=== PATIENT | male | born 1940 | race Caucasian/White ===

== ENCOUNTER 2020-12-13 09:00 | Emergency (ER) | payer MEDICARE, OTHER ==
[~2020-12-13] VITALS: Ht 188 cm; Wt 99.8 kg
[~2020-12-13 09:00] MED LIST: ACET325 PO; ACET500 PO; ASPI325EC PO; ASPI81EC; Antivert25 MG PO; BISA5EC PO; CELE200; CLOP75; CLOP75 PO; CYAN500; DOCU100 PO; FINA5 PO; Fenofibrate134 MG PO; HYDACE10B PO; IRON PO; LEVO750 PO; LISI5 PO; TAMS.4ER PO; TRAM50; VITAMIN B12; WARF4 PO; Zofran Odt4 MG SL; [UNRECOGNIZED DRUG - OTHER] PO; [UNRECOGNIZED DRUG - OTHER] PO
[2020-12-13] MEDS ORDERED: ATOR20 PO (09:31)
[2020-12-13] MEDS ORDERED: METF500 PO (09:31)
[2020-12-13] MEDS ORDERED: CLOP75 PO (09:32)
[2020-12-13 09:52] LABS: Source, Urine Catheter
[2020-12-13 09:57] LABS: BASOPHILS ABSOLUTE AUTO 0.05 K/mm3 (0.00-0.23); BASOPHILS PERCENT AUTO 0 % (0-2); EOSINOPHILS ABSOLUTE AUTO 0.04 K/mm3 (0.00-0.68); EOSINOPHILS PERCENT AUTO 0 % (0-6); Hematocrit 40.5 % (37.0-53.0); Hemoglobin 13.3 g/dL (13.5-17.5); IMMATURE GRAN ABSOLUTE AUTO 0.07 K/mm3 (0.00-0.10); IMMATURE GRAN PERCENT AUTO 1 % (0-1); LYMPHOCYTES ABSOLUTE AUTO 1.14 K/mm3 (0.84-5.20); LYMPHOCYTES PERCENT AUTO 10 % (21-46); MONOCYTES ABSOLUTE AUTO 1.13 K/mm3 (0.16-1.47); MONOCYTES PERCENT AUTO 10 % (4-13); Mean Corpuscular HGB 31.1 pg (26.0-34.0); Mean Corpuscular HGB Conc 32.8 g/dL (31.5-36.5); Mean Corpuscular Volume 95 fL (80-100); Mean Platelet Volume 10.5 fL (9.1-12.4); NEUTROPHILS ABSOLUTE AUTO 8.69 K/mm3 (1.96-9.15); NEUTROPHILS PERCENT AUTO 78 % (41-73); Platelet Count 265 K/mm3 (150-400); RDW Coefficient Variation 13.1 % (11.7-14.2); RDW Standard Deviation 45.2 fL (35.1-46.3); Red Blood Cell Count 4.27 M/mm3 (4.30-5.90); White Blood Cell Count 11.12 K/mm3 (4.00-11.30)
[2020-12-13 10:10] LABS: Bilirubin, Urine Neg (Neg); Blood, Urine 5+ (Neg); Glucose Qualitative, Urine Neg (Neg); Ketones, Urine 1+ (Neg); Leukocyte Esterase, Urine 2+ (Neg); Nitrite, Urine Pos (Neg); Protein, Urine 4+ (Neg); Specific Gravity, Urine 1.015 (1.003-1.022); Urobilinogen, Urine NORM (Normal); pH, Urine 6.5 (5.0-8.0)
[2020-12-13 10:12] LABS: International Normalized Ratio 1.02; Prothrombin Time Results 10.9 Sec (9.7-11.5)
[2020-12-13 10:12] LABS: Appearance, Urine Bloody (Clear); Color, Urine Red (P-Yellow)
[2020-12-13 10:19] LABS: Red Blood Cells, Urine TNTC /hpf (0-2); White Blood Cells, Urine 50-100 /hpf (0-5)
[2020-12-13 10:20] LABS: Alanine Aminotransfer (ALT/SGP 24 U/L (12-78); Albumin, Blood 3.5 g/dL (3.4-5.0); Alk Phos 67 U/L (50-136); Anion Gap 8 mmol/L (6-16); Aspartate Aminotrans (AST/SGOT 12 U/L (12-37); Bilirubin, Total 1.8 mg/dL (0.1-1.0); Blood Urea Nitrogen 21 mg/dL (8-24); Bun/Creatinine Ratio 17.9 (12.0-20.0); CO2, Blood 23 mmol/L (21-32); Calcium, Blood 9.1 mg/dL (8.5-10.1); Chloride, Blood 107 mmol/L (98-108); Creatinine, Blood 1.17 mg/dL (0.60-1.20); Globulin, Blood 3.6 g/dL (2.2-4.0); Glomerular Filtration Rate >60 (60-); Glucose, Blood 185 mg/dL (70-99); Potassium, Blood 4.6 mmol/L (3.5-5.5); Sodium, Blood 138 mmol/L (136-145); Total Protein, Blood 7.1 g/dL (6.4-8.2)
[2020-12-13 10:20] LABS: Bacteria Many /hpf; Squamous Epithelial Cells Rare /hpf (Few)
[2020-12-13] MEDS ORDERED: CEFP200 PO (11:29)
== END 2020-12-13 12:32 | disposition home or self-care (01) ==
LOC: ER 09:00
PROVIDERS: Emergency Medicine
DX: N39.0 Urinary tract infection, site not specified (principal); R31.9 Hematuria, unspecified; E11.9 Type 2 diabetes mellitus without complications; I10 Essential (primary) hypertension; Z79.84 Long term (current) use of oral hypoglycemic drugs; Z79.899 Other long term (current) drug therapy; Z79.01 Long term (current) use of anticoagulants
CPT/HCPCS: 51702; 76857; 80053; 81001; 85025; 85610; 85730; 87077; 87086; 87186; 96365-59; 99284-25; J0696

== ENCOUNTER 2020-12-16 22:59 | Emergency (ER) | payer MEDICARE, OTHER ==
[~2020-12-16] VITALS: Ht 193 cm; Wt 117.9 kg
[~2020-12-16 22:59] MED LIST changes: +ATOR20 PO; +CEFP200 PO; +METF500 PO
== END 2020-12-17 00:37 | disposition home or self-care (01) ==
LOC: ER 22:59
DX: T83.091A Other mechanical complication of indwelling urethral catheter, initial encounter (principal); R33.9 Retention of urine, unspecified; Z79.84 Long term (current) use of oral hypoglycemic drugs; Z79.02 Long term (current) use of antithrombotics/antiplatelets; Z79.899 Other long term (current) drug therapy
CPT/HCPCS: 51702; 51798; 81001; 87086; 99283; 99284-25

== ENCOUNTER 2023-04-23 12:07 | Inpatient (IN) | payer MEDICARE, BC ==
[~2023-04-23] VITALS: Ht 193 cm; Wt 127.1 kg
[2023-04-23 12:50] LABS: BASOPHILS ABSOLUTE AUTO 0.05 K/mm3 (0.00-0.23); BASOPHILS PERCENT AUTO 1 % (0-2); EOSINOPHILS ABSOLUTE AUTO 0.13 K/mm3 (0.00-0.68); EOSINOPHILS PERCENT AUTO 2 % (0-6); Hematocrit 41.9 % (37.0-53.0); Hemoglobin 14.1 g/dL (13.5-17.5); IMMATURE GRAN ABSOLUTE AUTO 0.04 K/mm3 (0.00-0.10); IMMATURE GRAN PERCENT AUTO 1 % (0-1); LYMPHOCYTES ABSOLUTE AUTO 1.32 K/mm3 (0.84-5.20); LYMPHOCYTES PERCENT AUTO 16 % (21-46); MONOCYTES ABSOLUTE AUTO 0.66 K/mm3 (0.16-1.47); MONOCYTES PERCENT AUTO 8 % (4-13); Mean Corpuscular HGB 33.1 pg (26.0-34.0); Mean Corpuscular HGB Conc 33.7 g/dL (31.5-36.5); Mean Corpuscular Volume 98 fL (80-100); Mean Platelet Volume 10.8 fL (9.1-12.4); NEUTROPHILS PERCENT AUTO 74 % (41-73); Platelet Count 221 K/mm3 (150-400); RDW Coefficient Variation 13.2 % (11.7-14.2); RDW Standard Deviation 47.5 fL (35.1-46.3); Red Blood Cell Count 4.26 M/mm3 (4.30-5.90)
[2023-04-23 13:03] LABS: Albumin, Blood 3.9 g/dL (3.4-5.0); Albumin/Globulin Ratio 1.3 (0.8-1.8); Bilirubin, Total 1.7 mg/dL (0.1-1.0); Bun/Creatinine Ratio 20.8 (12.0-20.0); Calcium, Blood 9.2 mg/dL (8.5-10.1); Creatinine, Blood 1.06 mg/dL (0.60-1.20); Potassium, Blood 4.6 mmol/L (3.5-5.5); Total Protein, Blood 6.9 g/dL (6.4-8.2)
[2023-04-23] MEDS ORDERED: PLAVIX75 MG PO (14:31)
[2023-04-23] MEDS ORDERED: LISINOPRIL2.5 MG PO (14:31)
[2023-04-23] MEDS ORDERED: FENO160 PO (14:33)
[2023-04-23 16:58] LABS: Anti-Xa UFH, PHA Monitoring <0.10 IU/mL; International Normalized Ratio 1.06; Prothrombin Time Results 11.1 Sec (9.7-11.5)
[2023-04-23 17:24] VITALS: BP 136/91
--- NOTE | 2023-04-23 19:14 | NUR ---
PT ARRIVED IN THE ROOM VIA GURNEY FROM ER TRANSFERRED TO PCU BED VIA SLIDER SHEET. PT IS HERE FOR NEW ONSENT OF AFIB RVR, PT GETS SOB WITH MINIMAL EXERTION, VITALS HRR AFIB 90'S TACHS UP TO 120'S WITH EXERTION, SATS ABOVE 95% ON RA, ABP 130'S, AFEBRILE. PT IS VERY LOWER [place] BUT IS ABLE TO ANSWER QUESTIONS APPROPRIATELY, HAS STACK IN PLACE DRAINING VIA GRAVITY, PT SELF STRAIGHT CATH AT HOME DUE TO RETENTION. HEPARIN GTT STARTED AT 15U/KG/HR. PT NOW RESTING IN BED CAN REPOSITION SELF INDEPENDENTLY IN BED. CALL LIGHTS IN REACH WILL REPORT TO ONCOMING SHIFT
[2023-04-23 20:21] VITALS: BP 97/77
[2023-04-23 23:28] VITALS: BP 106/77
[2023-04-24 04:15] VITALS: BP 105/83
[2023-04-24 04:22] LABS: BASOPHILS ABSOLUTE AUTO 0.04 K/mm3 (0.00-0.23); BASOPHILS PERCENT AUTO 0 % (0-2); EOSINOPHILS ABSOLUTE AUTO 0.18 K/mm3 (0.00-0.68); EOSINOPHILS PERCENT AUTO 2 % (0-6); Hematocrit 41.1 % (37.0-53.0); Hemoglobin 13.8 g/dL (13.5-17.5); IMMATURE GRAN ABSOLUTE AUTO 0.04 K/mm3 (0.00-0.10); IMMATURE GRAN PERCENT AUTO 0 % (0-1); LYMPHOCYTES ABSOLUTE AUTO 1.58 K/mm3 (0.84-5.20); LYMPHOCYTES PERCENT AUTO 17 % (21-46); MONOCYTES ABSOLUTE AUTO 0.73 K/mm3 (0.16-1.47); MONOCYTES PERCENT AUTO 8 % (4-13); Mean Corpuscular HGB 32.9 pg (26.0-34.0); Mean Corpuscular HGB Conc 33.6 g/dL (31.5-36.5); Mean Corpuscular Volume 98 fL (80-100); Mean Platelet Volume 10.6 fL (9.1-12.4); NEUTROPHILS ABSOLUTE AUTO 6.55 K/mm3 (1.96-9.15); NEUTROPHILS PERCENT AUTO 72 % (41-73); Platelet Count 196 K/mm3 (150-400); Red Blood Cell Count 4.19 M/mm3 (4.30-5.90); White Blood Cell Count 9.12 K/mm3 (4.00-11.30)
[2023-04-24 04:59] LABS: Albumin, Blood 3.5 g/dL (3.4-5.0); Albumin/Globulin Ratio 1.3 (0.8-1.8); Bilirubin, Total 1.8 mg/dL (0.1-1.0); Bun/Creatinine Ratio 22.5 (12.0-20.0); Calcium, Blood 8.9 mg/dL (8.5-10.1); Creatinine, Blood 0.8 mg/dL (0.60-1.20); Globulin, Blood 2.6 g/dL (2.2-4.0); Potassium, Blood 4.1 mmol/L (3.5-5.5); Total Protein, Blood 6.1 g/dL (6.4-8.2)
--- NOTE | 2023-04-24 06:27 | NUR ---
SHIFT SUMMARY PATIENT ALERT AND ORIENTED X3, VERY HARD OF HEARING, REQUIRES VERBAL CUES TO REMIND HIM HOW TO USE A WALKER WHEN GOING TO THE RESTROOM. PATIENT IS DYSPNIC UPON EXERTION, SPO2 >90% ON ROOM AIR. PATIENT HAD A 6 BEAT RUN OF VTACH, HEART RATE OTHERWISE AFIB IN THE 90'S WITH STABLE BLOOD PRESSURE. NO ACUTE ISSUES NOTED OVERNIGHT. WILL CONTINUE TO MONITOR. CALL LIGHT WITHIN REACH.
[2023-04-24 07:23] VITALS: BP 126/79
[2023-04-24 10:42] LABS: Source, Urine Foley catheter
[2023-04-24 11:13] VITALS: BP 105/75
[2023-04-24 11:39] LABS: Appearance, Urine Hazy (Clear); Bilirubin, Urine Neg (Neg); Blood, Urine 5+ (Neg); Color, Urine Yellow (P-Yellow); Glucose Qualitative, Urine Neg (Neg); Ketones, Urine Neg (Neg); Leukocyte Esterase, Urine Neg (Neg); Nitrite, Urine Neg (Neg); Protein, Urine 2+ (Neg); Specific Gravity, Urine 1.015 (1.003-1.022); Urobilinogen, Urine NORM (Normal)
[2023-04-24 12:42] LABS: Red Blood Cells, Urine 50-100 /hpf (0-2); White Blood Cells, Urine 0-2 /hpf (0-5)
[2023-04-24 12:43] LABS: Bacteria Mod /hpf; Squamous Epithelial Cells Not Seen /hpf (Few)
[2023-04-24 12:44] LABS: Mucus Light (0-Heavy)
[2023-04-24 16:06] VITALS: BP 142/74
--- NOTE | 2023-04-24 16:17 | NUR ---
pt update color of output in kerns catheter noted to have changed from hazey yellow this afternoon to red/maroon. Call placed to MD Eddy. MD Eddy w/ orders to place hep gtt on standby until AM. Call placed to pharmacy to notify. Hep gtt disconnected from pt and on standby at this time.
[2023-04-24 21:20] VITALS: BP 97/81
[2023-04-25] VITALS (7 sets, daily range): BP systolic 120–152; BP diastolic 71–99
[2023-04-25 03:49] LABS: BASOPHILS ABSOLUTE AUTO 0.05 K/mm3 (0.00-0.23); BASOPHILS PERCENT AUTO 1 % (0-2); EOSINOPHILS ABSOLUTE AUTO 0.14 K/mm3 (0.00-0.68); EOSINOPHILS PERCENT AUTO 1 % (0-6); Hematocrit 42.1 % (37.0-53.0); Hemoglobin 14.3 g/dL (13.5-17.5); IMMATURE GRAN ABSOLUTE AUTO 0.04 K/mm3 (0.00-0.10); IMMATURE GRAN PERCENT AUTO 0 % (0-1); LYMPHOCYTES ABSOLUTE AUTO 1.92 K/mm3 (0.84-5.20); LYMPHOCYTES PERCENT AUTO 17 % (21-46); MONOCYTES ABSOLUTE AUTO 1.14 K/mm3 (0.16-1.47); MONOCYTES PERCENT AUTO 10 % (4-13); Mean Corpuscular HGB 32.9 pg (26.0-34.0); Mean Corpuscular Volume 97 fL (80-100); Mean Platelet Volume 10.9 fL (9.1-12.4); NEUTROPHILS PERCENT AUTO 70 % (41-73); Platelet Count 207 K/mm3 (150-400); RDW Coefficient Variation 12.9 % (11.7-14.2); RDW Standard Deviation 46.1 fL (35.1-46.3); Red Blood Cell Count 4.34 M/mm3 (4.30-5.90); White Blood Cell Count 11.09 K/mm3 (4.00-11.30)
[2023-04-25 04:14] LABS: Bun/Creatinine Ratio 21.2 (12.0-20.0); Calcium, Blood 8.9 mg/dL (8.5-10.1); Creatinine, Blood 0.94 mg/dL (0.60-1.20); Potassium, Blood 4.2 mmol/L (3.5-5.5)
--- NOTE | 2023-04-25 07:56 | NUR ---
SHIFT SUMMARY PATIENT ALERT AND ORIENTED X3. PATIENT HAD NO COMPLAINTS OF CHEST PAIN. REPORTS SHORTNESS OF BREATH EVERY TIME HE SPEAKS. PATIENT'S HEART RATE STARTED SUSTAINING IN THE 120'S TO 130'S, MEDICATED EARLY FOR HIS MIDNIGHT DOSE OF METOPROLOL PER MANAGER OF FINANCIAL REPORTING RESIDENT. ASSESSED PATIENT'S STACK CATHETER AND IT DID NOT APPEAR TO BE DRAINING. THE CATHETER WAS ADVANCED SOME MORE AND FLUSHED AND HAD NO ADDITIONAL ISSUES NOTED. WILL CONTINUE TO MONITOR. CALL LIGHT WITHIN REACH.
--- NOTE | 2023-04-25 18:40 | NUR ---
SHIFT SUMMARY NO ACUTE CHANGES THIS SHIFT. PT A&O, CURY[place]G. SP02>90% ON RA. DENIES SOB. TELEMETRY SHOWS AFIB, HR 90'S-140'S. SUSTAINED MOSTLY 110'S T/O SHIFT. DID SUSTAIN >120 WHILE UP IN CHAIR. CALL PLACED TO MD LIRIANO. MD LIRIANO W/ ORDERS FOR PRN METOPROLOL PUSH. PT HR DECREASED TO 110'S BEFORE GIVING PRN MEDICATION. DENIES PAIN. STACK CATHETER DRAINING YELLOW/MARCELLA TINGED URINE TO GRAVITY. HEP GTT RESTARTED THIS AM PER MD LIRIANO. PT REFUSED REPOSITIONING Q2H. UP IN CHAIR DURING MORNING. SON VISITED IN AFTERNOON. CALL LIGHT IN REACH.
--- NOTE | 2023-04-25 23:51 | NUR ---
PROVIDER CALLED RESIDENT SOLIS REGARDING BLOOD/CLOTS IN CATHETER AND PT STILL BEING ON HEPARIN GTT. PROVIDER STATES TO STOP HEPARIN GTT AT THIS TIME AND CONINUE TO MONITOR FOR BLEEDING. HEPARIN STOPPED @ 6422
[2023-04-26] VITALS (7 sets, daily range): BP systolic 107–153; BP diastolic 66–115
[2023-04-26 02:37] LABS: Hematocrit 40.4 % (37.0-53.0); Hemoglobin 13.8 g/dL (13.5-17.5); Mean Platelet Volume 10.7 fL (9.1-12.4); Platelet Count 186 K/mm3 (150-400)
--- NOTE | 2023-04-26 04:49 | NUR ---
SHIFT SUMMARY PT REMAINS AXO. IN AFIB, HAS REQUIRED PRN LOPRESSOR TO MANAGE HR IT HAS MAINTAINED >120BPM AT DIFFERENT TIMES T/O THIS SHIFT, EVEN AT REST. HTN BUT STABLE. ON RA. POST CALLING PROVIDER REGARDING HEPARIN GTT AND BLOODY URINE IN CATHETER WITH CLOTS, HEPARIN ON HOLD. URINE IS BEGINNING TO LESSEN FROM MAROON TO RECREATION DIRECTOR RED COLORING. MODERATE URINE OUPUT NOTED WITHOUT SIGNS OF NEEDING IRRIGATION. OTHERWISE PT HAS BEEN REPOSITIONED ALLOWED AND HAS BEEN UP TO BSC THIS SHIFT. RESTING FOR THE REST OF THE SHIFT. BED ALARM ON.
[2023-04-26 15:34] LABS: Source, Urine Foley catheter
[2023-04-26 15:39] LABS: Appearance, Urine Cloudy (Clear); Bilirubin, Urine Neg (Neg); Blood, Urine 5+ (Neg); Color, Urine Red (P-Yellow); Glucose Qualitative, Urine Neg (Neg); Ketones, Urine 1+ (Neg); Leukocyte Esterase, Urine 3+ (Neg); Nitrite, Urine Pos (Neg); Protein, Urine 3+ (Neg); Specific Gravity, Urine 1.015 (1.003-1.022); Urobilinogen, Urine NORM (Normal)
[2023-04-26 15:44] LABS: Red Blood Cells, Urine TNTC /hpf (0-2); White Blood Cells, Urine TNTC /hpf (0-5)
[2023-04-26 15:47] LABS: Bacteria Many /hpf; Hyaline Casts 0-2 /lpf (0-2); Squamous Epithelial Cells Rare /hpf (Few); WBC Cast 0-2 /lpf (0)
--- NOTE | 2023-04-26 18:44 | NUR ---
PCU 12 End of shift note. Pt started the day with some slight baseline confusion but it has seemed to increase as the day went on. MD was notified of episodes and nursing concerns. Head CT was ordered and completed, ABX started for possible UTI. RN updated son Bk about concerns. Son stated that he also thought that Pt was more confused when he visited him this afternoon. Pt has been awake much of the day. This morning he was OOB to the chair and commode multiple times with SBA of staff. Kerns was changed out due to clots this morning. Continues to drain pink tinged urine. Pt remains Afib, rate 110-140s. Rate significantly improved after urine retention was resolved with kerns replacement. Bed alarm is currently active.
[2023-04-27] VITALS (8 sets, daily range): BP systolic 75–127; BP diastolic 61–76
[2023-04-27 05:11] LABS: Bun/Creatinine Ratio 29.2 (12.0-20.0); Calcium, Blood 8.8 mg/dL (8.5-10.1); Creatinine, Blood 0.96 mg/dL (0.60-1.20); Potassium, Blood 3.9 mmol/L (3.5-5.5)
--- NOTE | 2023-04-27 05:40 | NUR ---
SHIFT SUMMARY PT ALERT AND ORIENTED 2-3 DURING THIS SHIFT. OCCASIONAL CONFUSION NOTED. BP STABLE. AFIB NOTED ON MONITOR WITH HR 90-110'S DURING THIS SHIFT. AFEBRILE. SPO2 >92% ON RA. PATIENT IMPULSIVE AT TIMES AND ATTEMPTED TO GET OUT OF BED, SETTING THE BED ALARM OFF. DURING THESE TIMES THE PATIENT WAS ALSO ATTEMPTING TO PULL OUT CATHETER AND REMOVED ALL CLOTHES AND TELEMETRY. PATIENT REPORTED TO THIS RN THAT HE "NEEDED TO PEE" DURING THESE AGGITATED PERIODS. BLADDER SCAN SHOWED 340MLS. UNABLE TO IRRIGATE STACK AT THIS TIME. REMOVED STACK AND PLACED NEW STACK USING STERILE TECHNIQUE. STACK CATHETER DRAINED 400MLS AFTER PLACEMENT. PATIENT NOTED TO BECOME MORE RELAXED AND FELL BACK TO SLEEP AFTER. URINE NOTED TO BE BLOOD TINGED WITH SEDIMENT/CLOTS. STACK CATHETER CONTINUED TO DRAIN APPROPRIATELY THROUGHOUT THE REMAINDER OF THE SHIFT. BED IN LOWEST POSITION AND CALL LIGHT WITHIN REACH. THIS RN WILL CONTINUE TO MONITOR UNTIL SHIFT CHANGE AT 0700.
--- NOTE | 2023-04-27 18:58 | NUR ---
End of shift note. Pt has had a better day compared to yesterday. Pt has had no more confusion. Despite irrigating the kerns regularly, it clotted off and needed to be replaced at 1500. Pt tolerated well. Urine continues intermittently be pink tinged with clots. Pt worked with PT this morning. Son was at bedside for session. base manager visited and reported Pt may possibly go to SNF at discharge.
[2023-04-28 03:35] VITALS: BP 119/75
--- NOTE | 2023-04-28 04:47 | NUR ---
SHIFT SUMMARY ALERT AND ORIENTED X3-4. ABLE TO MAKE NEEDS KNOWN. THIS RN NOTES NO FURTHER CONFUSION DURING THIS SHIFT IN PREVIOUS NIGHT SHIFTS. CALLING APPROPRIATELY FOR NEEDS. BED ALARM REMAINS ON. AFIB WITH HR 90-120'S DURING THIS SHIFT. BP STABLE. AFEBRILE. SPO2 >92% ON RA. THIS RN ATTEMPTED TO IRRIGATE STACK AT BEGINNING OF SHIFT. STACK WITH NO OUTPUT FOR 2HRS AND AN INABILITY TO IRRIGATE, PT REPORTING URGE TO URINATE. STAKC REPLACED WITH 18G. URINE YELLOW WITH NOTED RED BLOOD CLOTS. RED URINE IN COLLECTION BAG. 500MLS OF OUTPUT NOTED AFTER PLACEMENT OF STACK. CONTINUING TO IRRIGATE Q4 PER ORDER. NO FURTHER CHANGES. REPOSITIONING Q2HRS. BED IN LOWEST POSITION AND CALL LIGHT WITHIN REACH. THIS RN WILL CONTINUE TO MONITOR UNTIL SHIFT CHANGE AT 0700.
[2023-04-28 05:39] LABS: Calcium, Blood 8.7 mg/dL (8.5-10.1); Magnesium, Blood 1.7 mg/dL (1.6-2.4); Potassium, Blood 4.2 mmol/L (3.5-5.5)
[2023-04-28 07:37] VITALS: BP 113/74
[2023-04-28 11:49] VITALS: BP 137/119
[2023-04-28 16:03] VITALS: BP 110/73
--- NOTE | 2023-04-28 17:28 | NUR ---
SHIFT SUMMARY: PT A&O TO SELF, LOCATION, SITUATION AND IS [place]. PT ANSWERING QUESTIONS APPROPRIATELY AND COOPERATIVE W/CARE. PT TRANSFERS TO/FROM BEDSIDE RECLINER W/MINIMAL ASSISTANCE AND FWW. AFIB CONTINUES ON MONITOR, RATE 90s-110s, MEDICATION DOSE CHANGE MADE BY PROVIDER. PT DENIES SOB, O2 SATS MAINTAINED >93% ON RA. INDWELLING STACK PATENT, IRRIGATED W/OUT DIFFICULTY AND HAS BEEN DRAINING YELLOW COLORED URINE SINCE APPROX 1200. PT ABLE TO PRODUCE BM THIS SHIFT. AT THIS TIME, PT RESTING QUIETLY IN ROOM W/CALL LIGHT IN REACH. WILL CONTINUE TO MONITOR AND TREAT ACCORDINGLY UNTIL CHANGE OF SHIFT.
[2023-04-28 19:50] VITALS: BP 126/115
[2023-04-29 00:20] VITALS: BP 97/44
[2023-04-29 04:14] VITALS: BP 107/78
[2023-04-29 04:38] LABS: Hematocrit 42.4 % (37.0-53.0); Hemoglobin 14.3 g/dL (13.5-17.5); Mean Corpuscular HGB 32.9 pg (26.0-34.0); Mean Corpuscular HGB Conc 33.7 g/dL (31.5-36.5); Mean Corpuscular Volume 98 fL (80-100); Mean Platelet Volume 11.2 fL (9.1-12.4); Platelet Count 248 K/mm3 (150-400); RDW Coefficient Variation 12.9 % (11.7-14.2); RDW Standard Deviation 46.1 fL (35.1-46.3); Red Blood Cell Count 4.35 M/mm3 (4.30-5.90); White Blood Cell Count 9.24 K/mm3 (4.00-11.30)
[2023-04-29 04:58] LABS: Bun/Creatinine Ratio 36.5 (12.0-20.0); Calcium, Blood 8.8 mg/dL (8.5-10.1); Creatinine, Blood 0.93 mg/dL (0.60-1.20); Potassium, Blood 4.4 mmol/L (3.5-5.5)
--- NOTE | 2023-04-29 06:20 | NUR ---
SHIFT SUMMARY PATIENT A&O 2-3 PERIODS OF FORGETFULLNESS/CONFUSTION. EASILY REORIENTED. FOLLOWS COMMANDS. FOELY IRRIGATED X1 WITH PINK URINE COLOR IN RETURN. NO FURTHER BLOOD CLOTS/HEMATURIA NOTED. PATIENT WAS EMOTIONAL THIS AM. WOULD LIKE TO DC HOME TODAY.
[2023-04-29 07:49] VITALS: BP 120/85
[2023-04-29] MEDS ORDERED: Acetaminophen325 M1 PO (12:04)
[2023-04-29] MEDS ORDERED: FURO20 PO (12:05)
[2023-04-29] MEDS ORDERED: DOCU100 PO (12:05)
[2023-04-29] MEDS ORDERED: METO100ER PO (12:06)
[2023-04-29] MEDS ORDERED: PROBIOTIC1 EA13 PO (12:06)
[2023-04-29] MEDS ORDERED: LEVO750 PO (12:07)
--- NOTE | 2023-04-29 13:33 | NUR ---
DISCHARGE: PT AND FAMILY VERBALIZE INTENT FOR PT TO GO HOME, DECLINE HOME HEALTH. DC PAPERWORK PROVIDED AND EDUCATION PROVIDED RE: F/UP WITH PCP, STACK CARE AND MEDICATIONS. PT's SON V/U. IV ACCESS DC'd WNL. PT ASSISTS W/DRESSING SELF. PT DEPARTS VIA W/C TRANSPORT WITHOUT INCIDENT.
== END 2023-04-29 13:20 | disposition home or self-care (01) | DRG 291 ==
LOC: ER 12:07 → PCU 12:08
PROVIDERS: Emergency Medicine; Internal Medicine; ADMIT Internal Medicine
PROC: 0T9B70Z Drainage of Bladder with Drainage Device, Via Natural or Artificial Opening (ICD-10-PCS; principal; 2023-04-26)
DX: I11.0 Hypertensive heart disease with heart failure (principal); G92.8 Other toxic encephalopathy; I50.21 Acute systolic (congestive) heart failure; J96.01 Acute respiratory failure with hypoxia; N13.8 Other obstructive and reflux uropathy; N39.0 Urinary tract infection, site not specified; I48.92 Unspecified atrial flutter; E44.0 Moderate protein-calorie malnutrition; Z68.1 Body mass index [BMI] 19.9 or less, adult; N40.1 Benign prostatic hyperplasia with lower urinary tract symptoms; B95.2 Enterococcus as the cause of diseases classified elsewhere; R33.8 Other retention of urine; R31.9 Hematuria, unspecified; I48.91 Unspecified atrial fibrillation; E83.42 Hypomagnesemia; E11.9 Type 2 diabetes mellitus without complications; M19.90 Unspecified osteoarthritis, unspecified site; E66.9 Obesity, unspecified; E78.5 Hyperlipidemia, unspecified; Z96.653 Presence of artificial knee joint, bilateral; Z98.890 Other specified postprocedural states; Z86.73 Personal history of transient ischemic attack (TIA), and cerebral infarction without residual deficits; Z68.36 Body mass index [BMI] 36.0-36.9, adult; Z99.81 Dependence on supplemental oxygen; Z79.84 Long term (current) use of oral hypoglycemic drugs; Z79.899 Other long term (current) drug therapy
CPT/HCPCS: 36415; 51702; 70450; 71046; 80048; 80053; 81001; 82947; 83735; 83880; 84443; 84484; 85014; 85018; 85025; 85027; 85049; 85520; 85610; 85730; 87077; 87086; 87186; 93005; 93010; 94760; 96374; 97110; 97116; 97162; 97166; 97530; 99285-25; A9270; C8929; J0696; J1644; J1815; J3370; J3475; J7050; Q9957

== ENCOUNTER 2023-08-16 09:12 | Emergency (ER) | payer MEDICARE, BC ==
[~2023-08-16] VITALS: Ht 193 cm; Wt 127.0 kg
[~2023-08-16 09:12] MED LIST changes: +Acetaminophen325 M1 PO; +FENO160 PO; +FURO20 PO; +LISINOPRIL2.5 MG PO; +METO100ER PO; +PLAVIX75 MG PO; +PROBIOTIC1 EA13 PO
[2023-08-16 09:50] LABS: BASOPHILS ABSOLUTE AUTO 0.04 K/mm3 (0.00-0.23); BASOPHILS PERCENT AUTO 1 % (0-2); EOSINOPHILS ABSOLUTE AUTO 0.18 K/mm3 (0.00-0.68); EOSINOPHILS PERCENT AUTO 3 % (0-6); Hematocrit 38.4 % (37.0-53.0); Hemoglobin 12.8 g/dL (13.5-17.5); IMMATURE GRAN ABSOLUTE AUTO 0.02 K/mm3 (0.00-0.10); IMMATURE GRAN PERCENT AUTO 0 % (0-1); LYMPHOCYTES PERCENT AUTO 17 % (21-46); MONOCYTES ABSOLUTE AUTO 0.62 K/mm3 (0.16-1.47); MONOCYTES PERCENT AUTO 9 % (4-13); Mean Corpuscular HGB 32.9 pg (26.0-34.0); Mean Corpuscular HGB Conc 33.3 g/dL (31.5-36.5); Mean Corpuscular Volume 99 fL (80-100); Mean Platelet Volume 10.2 fL (9.1-12.4); NEUTROPHILS ABSOLUTE AUTO 5.08 K/mm3 (1.96-9.15); NEUTROPHILS PERCENT AUTO 71 % (41-73); Platelet Count 202 K/mm3 (150-400); RDW Coefficient Variation 13.9 % (11.7-14.2); RDW Standard Deviation 49.9 fL (35.1-46.3); Red Blood Cell Count 3.89 M/mm3 (4.30-5.90); White Blood Cell Count 7.14 K/mm3 (4.00-11.30)
[2023-08-16] MEDS ORDERED: ELIQUIS5 M3 PO (09:50)
[2023-08-16 10:14] LABS: Albumin, Blood 3.4 g/dL (3.4-5.0); Albumin/Globulin Ratio 1.2 (0.8-1.8); Bilirubin, Total 1.4 mg/dL (0.1-1.0); Bun/Creatinine Ratio 23.6 (12.0-20.0); Calcium, Blood 8.6 mg/dL (8.5-10.1); Creatinine, Blood 1.27 mg/dL (0.60-1.20); Globulin, Blood 2.8 g/dL (2.2-4.0); Potassium, Blood 3.9 mmol/L (3.5-5.5); Total Protein, Blood 6.2 g/dL (6.4-8.2)
[2023-08-16 11:41] VITALS: BP 119/90
== END 2023-08-16 12:00 | disposition home or self-care (01) ==
LOC: ER 09:12
PROVIDERS: Emergency Medicine
DX: I95.9 Hypotension, unspecified (principal); R19.7 Diarrhea, unspecified; E11.9 Type 2 diabetes mellitus without complications; I10 Essential (primary) hypertension; Z79.84 Long term (current) use of oral hypoglycemic drugs; Z79.899 Other long term (current) drug therapy
CPT/HCPCS: 71045; 80053; 83880; 84484; 85025; 93005; 93010; 99285-25; J7030

== ENCOUNTER → 2024-11-09 | Outpatient (CLI) | payer MEDICARE, BC ==
[~2024-11-09] MED LIST changes: +ELIQUIS5 M3 PO
[2024-11-09 16:06] LABS: Microalb/Creat Ratio UR, Rand 259.259 mg/g (0.000-30.000)
== END ==
LOC: LAB 05:00 → LAB SHORT 05:00
PROVIDERS: Physician Assistant
DX: E11.9 Type 2 diabetes mellitus without complications (principal)
CPT/HCPCS: 82043; 82570

== ENCOUNTER 2025-11-01 05:49 | Emergency (ER) | payer MEDICARE, BC ==
[~2025-11-01] VITALS: Ht 193 cm; Wt 113.4 kg
[2025-11-01 06:26] LABS: BASOPHILS ABSOLUTE AUTO 0.05 K/mm3 (0.00-0.23); BASOPHILS PERCENT AUTO 1 % (0-2); EOSINOPHILS ABSOLUTE AUTO 0.10 K/mm3 (0.00-0.68); EOSINOPHILS PERCENT AUTO 1 % (0-6); Hematocrit 48.5 % (37.0-53.0); Hemoglobin 16.0 g/dL (13.5-17.5); IMMATURE GRAN ABSOLUTE AUTO 0.05 K/mm3 (0.00-0.10); IMMATURE GRAN PERCENT AUTO 1 % (0-1); LYMPHOCYTES ABSOLUTE AUTO 1.40 K/mm3 (0.84-5.20); LYMPHOCYTES PERCENT AUTO 17 % (21-46); MONOCYTES ABSOLUTE AUTO 0.59 K/mm3 (0.16-1.47); MONOCYTES PERCENT AUTO 7 % (4-13); Mean Corpuscular HGB Conc 33.0 g/dL (31.5-36.5); Mean Corpuscular Volume 100 fL (80-100); NEUTROPHILS ABSOLUTE AUTO 5.85 K/mm3 (1.96-9.15); NEUTROPHILS PERCENT AUTO 73 % (41-73); NRBC ABSOLUTE 0.00 K/mm3 (0.00-0.02); NRBC Auto 0.0 /100 WBC (0.0-0.2); Platelet Count 248 K/mm3 (150-400); RDW Coefficient Variation 12.7 % (11.7-14.2); RDW Standard Deviation 46.8 fL (35.1-46.3)
[2025-11-01 06:38] LABS: Alanine Aminotransfer (ALT/SGP 30.0 U/L (12-78); Albumin, Blood 4.2 g/dL (3.4-5.0); Albumin/Globulin Ratio 1.3 (0.8-1.8); Anion Gap 12.0 mmol/L (3-11); Aspartate Aminotrans (AST/SGOT 12.0 U/L (12-37); Bilirubin, Total 2.3 mg/dL (0.1-1.0); Blood Urea Nitrogen 35.0 mg/dL (8-24); CO2, Blood 23.0 mmol/L (21-32); Calcium, Blood 9.6 mg/dL (8.5-10.1); Chloride, Blood 107.0 mmol/L (98-108); Creatinine, Blood 1.33 mg/dL (0.60-1.20); Globulin, Blood 3.3 g/dL (2.2-4.0); Glucose, Blood 159.0 mg/dL (70-99); Potassium, Blood 4.3 mmol/L (3.5-5.5); Sodium, Blood 138.0 mmol/L (136-145); Total Protein, Blood 7.5 g/dL (6.4-8.2)
[2025-11-01] MEDS ORDERED: Morphine Sulfate 4 MG/1 ML Injection IV ONE (06:50)
[2025-11-01 07:35] LABS: Source, Urine Straight Cath
[2025-11-01 07:49] LABS: Bilirubin, Urine Neg (Neg); Color, Urine Yellow (P-Yellow); Glucose Qualitative, Urine 3+ (Neg); Ketones, Urine Neg (Neg); Leukocyte Esterase, Urine 3+ (Neg); Protein, Urine 1+ (Neg); Specific Gravity, Urine 1.015 (1.003-1.022); Urobilinogen, Urine NORM (Normal)
[2025-11-01 08:00] LABS: White Blood Cells, Urine 25-50 /hpf (0-5)
[2025-11-01 08:41] VITALS: BP 121/85
[2025-11-01] MEDS ORDERED: PHENA200 PO (09:21)
[2025-11-01] MEDS ORDERED: CEFP200 PO (09:21)
== END 2025-11-01 09:52 | disposition home or self-care (01) ==
LOC: ER 05:49
PROVIDERS: Student in an Organized Health Care Education/Training Program
DX: N12 Tubulo-interstitial nephritis, not specified as acute or chronic (principal); Z79.01 Long term (current) use of anticoagulants; Z79.2 Long term (current) use of antibiotics; Z79.899 Other long term (current) drug therapy; E11.9 Type 2 diabetes mellitus without complications; I10 Essential (primary) hypertension; E78.5 Hyperlipidemia, unspecified
CPT/HCPCS: 51701; 71046; 74177; 76705; 80053; 81001; 82248; 83690; 84484; 85025; 87077; 87086; 87186; 96374-59; 99284-25; A9270; J2270; Q9967

== ENCOUNTER 2025-11-04 13:25 | Inpatient (IN) | payer MEDICARE, BC ==
[~2025-11-04] VITALS: Ht 190.5 cm; Wt 104.6 kg
[~2025-11-04 13:25] MED LIST changes: +PHENA200 PO
[2025-11-04 14:24] LABS: BASOPHILS ABSOLUTE AUTO 0.06 K/mm3 (0.00-0.23); BASOPHILS PERCENT AUTO 1 % (0-2); EOSINOPHILS ABSOLUTE AUTO 0.16 K/mm3 (0.00-0.68); EOSINOPHILS PERCENT AUTO 2 % (0-6); Hematocrit 43.8 % (37.0-53.0); Hemoglobin 14.9 g/dL (13.5-17.5); IMMATURE GRAN ABSOLUTE AUTO 0.05 K/mm3 (0.00-0.10); IMMATURE GRAN PERCENT AUTO 1 % (0-1); LYMPHOCYTES ABSOLUTE AUTO 2.13 K/mm3 (0.84-5.20); LYMPHOCYTES PERCENT AUTO 24 % (21-46); MONOCYTES ABSOLUTE AUTO 0.87 K/mm3 (0.16-1.47); MONOCYTES PERCENT AUTO 10 % (4-13); Mean Corpuscular HGB Conc 34.0 g/dL (31.5-36.5); Mean Corpuscular Volume 99 fL (80-100); NEUTROPHILS ABSOLUTE AUTO 5.51 K/mm3 (1.96-9.15); NEUTROPHILS PERCENT AUTO 63 % (41-73); NRBC ABSOLUTE 0.00 K/mm3 (0.00-0.02); NRBC Auto 0.0 /100 WBC (0.0-0.2); Platelet Count 240 K/mm3 (150-400); RDW Coefficient Variation 12.7 % (11.7-14.2); RDW Standard Deviation 45.6 fL (35.1-46.3)
[2025-11-04] MEDS ORDERED: Morphine Sulfate 4 MG/1 ML Injection IV ONE ×2 (14:45→17:15)
[2025-11-04 14:47] LABS: Alanine Aminotransfer (ALT/SGP 53.0 U/L (12-78); Albumin, Blood 3.9 g/dL (3.4-5.0); Albumin/Globulin Ratio 1.3 (0.8-1.8); Anion Gap 11.0 mmol/L (3-11); Aspartate Aminotrans (AST/SGOT 34.0 U/L (12-37); Bilirubin, Total 1.8 mg/dL (0.1-1.0); Blood Urea Nitrogen 35.0 mg/dL (8-24); CO2, Blood 22.0 mmol/L (21-32); Calcium, Blood 9.3 mg/dL (8.5-10.1); Chloride, Blood 109.0 mmol/L (98-108); Creatinine, Blood 1.16 mg/dL (0.60-1.20); Globulin, Blood 3.1 g/dL (2.2-4.0); Glucose, Blood 106.0 mg/dL (70-99); Potassium, Blood 4.8 mmol/L (3.5-5.5); Sodium, Blood 137.0 mmol/L (136-145); Total Protein, Blood 7.0 g/dL (6.4-8.2)
[2025-11-04] MEDS ORDERED: CefTRIAXone Sodium 1,000 MG in NS 100 ML IV ONE (17:00)
[2025-11-04 17:16] LABS: Source, Urine Clean Catch
[2025-11-04 17:19] LABS: Glucose Qualitative, Urine 3+ (Neg); Ketones, Urine Neg (Neg); Leukocyte Esterase, Urine 1+ (Neg); Protein, Urine 2+ (Neg); Specific Gravity, Urine 1.010 (1.003-1.022); Urobilinogen, Urine 3+ (Normal)
[2025-11-04 17:25] LABS: Bilirubin, Urine 3+ (Neg); Color, Urine Orange (P-Yellow)
[2025-11-04 17:26] LABS: Red Blood Cells, Urine TNTC /hpf (0-2)
[2025-11-04] MEDS ORDERED: Ketorolac Tromethamine 15mg Vial IV ONE (18:35)
[2025-11-04] MEDS ORDERED: Polyethylene Glycol 3350 17 gm PO SCH (20:00)
[2025-11-04] MEDS ORDERED: Morphine Sulfate 4 MG/1 ML Injection IV PRN (20:00)
[2025-11-04] MEDS ORDERED: NS 1,000 ML IV SCH (20:00)
[2025-11-04] MEDS ORDERED: FLU VACC TS2025(65UP)/MF59C/PF 45 MCG/0.5 ML SYRINGE IM SCH (20:05)
[2025-11-04 23:36] VITALS: BP 159/88
[2025-11-05 05:25] VITALS: BP 94/73
--- NOTE | 2025-11-05 06:13 | NUR ---
SHIFT SUMMARY: PT AOX3 SOME CONFUSION BUT REORIENTS EASILY. STACK DRAINING TO GRAVITY. STILL HAVING SOME BLOOD IN IT BUT NO CLOTS NOTED. IS ON PYRIDIAM. PT TOLERATING MEDICATIONS WELL, NO BM THIS PM. NO ACUTE OVERNIGHT EVENTS. PT IN BED RESTING, BED IN LOWEST POSITION, CALL LIGHT IN REACH. CONTINUING CARE.
[2025-11-05 06:50] LABS: Hematocrit 43.2 % (37.0-53.0); Hemoglobin 14.6 g/dL (13.5-17.5); Mean Corpuscular HGB Conc 33.8 g/dL (31.5-36.5); Mean Corpuscular Volume 101 fL (80-100); NRBC ABSOLUTE 0.00 K/mm3 (0.00-0.02); NRBC Auto 0.0 /100 WBC (0.0-0.2); Platelet Count 210 K/mm3 (150-400); RDW Coefficient Variation 12.8 % (11.7-14.2); RDW Standard Deviation 47.1 fL (35.1-46.3)
[2025-11-05 07:17] VITALS: BP 98/66
[2025-11-05 07:25] LABS: Anion Gap 8.0 mmol/L (3-11); Blood Urea Nitrogen 31.0 mg/dL (8-24); CO2, Blood 26.0 mmol/L (21-32); Calcium, Blood 8.6 mg/dL (8.5-10.1); Chloride, Blood 108.0 mmol/L (98-108); Creatinine, Blood 1.03 mg/dL (0.60-1.20); Glucose, Blood 116.0 mg/dL (70-99); Potassium, Blood 4.6 mmol/L (3.5-5.5); Sodium, Blood 137.0 mmol/L (136-145)
[2025-11-05] MEDS ORDERED: CefTRIAXone Sodium 1,000 MG in NS 100 ML IV SCH (09:00)
[2025-11-05] MEDS ORDERED: NS 500 ML IV ONE ×2 (10:00→16:20)
[2025-11-05 11:38] VITALS: BP 88/64
[2025-11-05 13:07] VITALS: BP 113/95
[2025-11-05] MEDS ORDERED: LORazepam 2 MG/ML 1ML Injection IV PRN (13:50)
[2025-11-05 15:35] VITALS: BP 96/73
--- NOTE | 2025-11-05 17:51 | NUR ---
SHIFT SUMMARY PT AOX3/4, COOPERATIVE, ABLE TO MAKE NEEDS KNONW. PT IS SOFT SPOKEN AND [place]. 1 PERSON ASSIST USING GAIT BELT AND FWW. TOLERATING MEDICATIONS. SOFT BPS TODAY, AWARE AND ADJUSTING ORDERS. STACK CATHETER INTACT AND DRAINING TO GRAVITY, DOES HAVE ORANGE AND BLOODY LIQUID IN BAG, MD AWARE WELL. PT ATTEMPTED TO HAVE BM TODAY AND STARTED PULLING ON CATHETER EXPLAINING THAT THE CATHETER IS ABSTRUCTING HIMSELF TO HAVE BM. THIS RN EXPLAINED THAT THE CATHETER IS NOT BLOCKING HIS ABILITY AND THAT THE PT CANNOT BE PULLING ON THE CATHETER FOR SAFELY. PT WAS VERY RESISTANT TO EDUCATION. AWARE AND PLACED ORDERS FOR ANXIETY IF PT OPTS TO PULL ON CATH AGAIN DURING BM PROCESS. BED ALARM ACTIVE. BED IN LOWEST POSITION, CALL LIGHT WITHIN REACH.
[2025-11-05 20:03] VITALS: BP 91/71
[2025-11-06] VITALS (7 sets, daily range): BP systolic 74–142; BP diastolic 65–92
--- NOTE | 2025-11-06 02:25 | NUR ---
PT STATUS I DID NOTICE EVEN LOWER BP AGAIN. HOWEVER, WHEN I REDID HIS BP IT WAS IMPROVED IN HIS LEFT ARM. EVEN MORE IMPORTANTLY I NOTICED THAT HIS BP WAS NORMAL IN HIS RIGHT ARM. (STAFF HAD BEEN TAKING BP'S ON HIS LEFT ARM PREVIOUSLY).
--- NOTE | 2025-11-06 04:13 | NUR ---
SHIFT SUMMARY ADMITTED FOR UTI, ABDOMINAL PAIN. DNR CODE. PLAN IS FOR DC HOME WITH HIS SON WHEN STABLE. STACK IN PLACE. PLEASE NOTE: I DID FIND THIS SHIFT THAT HIS BLOOD PRESSURES ARE NORMAL IN THE RIGHT ARM. IN THE LEFT ARM HE APPEARS HYPOTENSIVE. THIS IS CONSISTENT OF THIS MORNING WELL. TELEMETRY: NSR @ 93 BPM (WITH ONE BRIEF EPISODE OF A. FLUTTER). HE DID BECOME CONFUSED THIS SHIFT, I AM UNCERTAIN IF HE SUNDOWNS. HE DID PULL OFF HIS TELE, AND PULLS AT HIS STACK WELL. HE IS A 1 ASSIST W/FWW - BRP. STG. 2 COCCYX ULCER. HE IS ON ELIQUIS. HE SELF CATHS AT HOME. HX OF TURPS, BPH.
[2025-11-06 06:17] LABS: Alanine Aminotransfer (ALT/SGP 40.0 U/L (12-78); Albumin, Blood 3.6 g/dL (3.4-5.0); Albumin/Globulin Ratio 1.3 (0.8-1.8); Anion Gap 9.0 mmol/L (3-11); Aspartate Aminotrans (AST/SGOT 22.0 U/L (12-37); Bilirubin, Total 1.6 mg/dL (0.1-1.0); Blood Urea Nitrogen 24.0 mg/dL (8-24); CO2, Blood 24.0 mmol/L (21-32); Calcium, Blood 9.5 mg/dL (8.5-10.1); Chloride, Blood 110.0 mmol/L (98-108); Creatinine, Blood 0.88 mg/dL (0.60-1.20); Globulin, Blood 2.8 g/dL (2.2-4.0); Glucose, Blood 111.0 mg/dL (70-99); Potassium, Blood 4.7 mmol/L (3.5-5.5); Sodium, Blood 138.0 mmol/L (136-145); Total Protein, Blood 6.4 g/dL (6.4-8.2)
[2025-11-06] MEDS ORDERED: Metoprolol Tartrate 1 MG/ML 5 ML VIAL IV ONE (09:00)
--- NOTE | 2025-11-06 11:51 | NUR ---
THIS RN INFORMED DR RAYA AT APPROX 0850 OF PTS HR SUSTAINING IN THE 130S. IV METOPROLOL GIVEN PER EMAR.
--- NOTE | 2025-11-06 12:36 | NUR ---
DR. RAYA NOTFIED AT APPROX [address] WELLS OF PTS SUSTAINED HEART RATE IN THE 140S. PT WAS AMBULATING FROM THE RESTROOM AT THIS TIME. UPON RESTING IN BED PTS HEART RATE WENT DOWN TO THE HIGH 90S PER PERFORMANCE IMPROVEMENT DIRECTOR. NO NEW CHANGES TO EMAR.
--- NOTE | 2025-11-06 14:05 | NUR ---
PROVIDER NOTIFICATION PATIENT COMPLAINING OF ABD PAIN. STACK NOT DRAINING AND RED BLOOD AROUND INSERTION SITE. SOME SMALL RED CLOTS IN STACK BAG. BLADDER SCAN WAS 670. DR. RAYA NOTIFIED. VERBAL ORDER TO REPLACE CATH. THREE-WAY STACK PLACED DUE TO CLOTS AND PATIENT PULLING AT STACK. CAPPED TUBE WHILE NO IRRIGATION IS RUNNING. PATIENT TOLERATED WELL.
--- NOTE | 2025-11-06 17:50 | NUR ---
PT A/OX3 - NOT ORIENTED TO DATE/YEAR. PER PTS SON, PT HAS HAD SOME INCREASED CONFUSION SINCE BEING ADMITTED. PT IS ALSO [place]. STACK DID HAVE TO BE REPLACED THIS SHIFT. PT REPORTED BLADDER PAIN AND THIS RN DID NOTE A SMALL CLOT IN THE DRAIANGE BAG. PT WAS BLADDER SCANNED AND WAS RETAINING SO THE STACK WAS REMOVED AND REPLACED WITH A 3-WAY CATHETER IN CASE HE NEEDS IRRIGATION. OF CURRENTLY, HE REPORTS NO BLADDER PAIN. CATHETER HAS HAD GOOD OUTPUT. PT IS CURRENTLY SITTING UP IN BED EATING DINNER. BED IS LOCKED AND CALL LIGHT IS IN REACH. NO ACUTE NEEDS AT THIS TIME.
[2025-11-07 00:47] VITALS: BP 120/98
[2025-11-07 04:23] VITALS: BP 100/62
--- NOTE | 2025-11-07 06:15 | NUR ---
Alert and oriented to himself, denied any distress. Though, expressed mild pain and administered Tylenol po PRN. Patient consumed an adequate amount of sleep and reported having an adequate appetite. Complied with scheduled meds and PRN tylenol was given for pain. Per report, due to his cognitive status, pt had been pulling his catheter and resulted having urine with some blood. The team had been monitoring the bag over night, noted that the color was getting darker toward the morning. Patient was asymptomatic and denied any acute changesand distress. Notified Dr. Tapia and requrested for the labs to be drawn. The team is waiting for the result currently.
[2025-11-07 06:35] LABS: BASOPHILS ABSOLUTE AUTO 0.04 K/mm3 (0.00-0.23); BASOPHILS PERCENT AUTO 0 % (0-2); EOSINOPHILS ABSOLUTE AUTO 0.11 K/mm3 (0.00-0.68); EOSINOPHILS PERCENT AUTO 1 % (0-6); Hematocrit 40.2 % (37.0-53.0); Hemoglobin 13.8 g/dL (13.5-17.5); IMMATURE GRAN ABSOLUTE AUTO 0.04 K/mm3 (0.00-0.10); IMMATURE GRAN PERCENT AUTO 0 % (0-1); LYMPHOCYTES ABSOLUTE AUTO 1.58 K/mm3 (0.84-5.20); LYMPHOCYTES PERCENT AUTO 17 % (21-46); MONOCYTES ABSOLUTE AUTO 0.83 K/mm3 (0.16-1.47); MONOCYTES PERCENT AUTO 9 % (4-13); Mean Corpuscular HGB Conc 34.3 g/dL (31.5-36.5); Mean Corpuscular Volume 100 fL (80-100); NEUTROPHILS ABSOLUTE AUTO 6.68 K/mm3 (1.96-9.15); NEUTROPHILS PERCENT AUTO 72 % (41-73); NRBC ABSOLUTE 0.00 K/mm3 (0.00-0.02); NRBC Auto 0.0 /100 WBC (0.0-0.2); Platelet Count 199 K/mm3 (150-400); RDW Coefficient Variation 12.7 % (11.7-14.2); RDW Standard Deviation 46.7 fL (35.1-46.3)
[2025-11-07 06:56] LABS: Anion Gap 9.0 mmol/L (3-11); Blood Urea Nitrogen 22.0 mg/dL (8-24); CO2, Blood 25.0 mmol/L (21-32); Calcium, Blood 8.7 mg/dL (8.5-10.1); Chloride, Blood 109.0 mmol/L (98-108); Creatinine, Blood 0.94 mg/dL (0.60-1.20); Glucose, Blood 123.0 mg/dL (70-99); Potassium, Blood 4.8 mmol/L (3.5-5.5); Sodium, Blood 138.0 mmol/L (136-145)
[2025-11-07 07:40] VITALS: BP 123/81
[2025-11-07 09:39] VITALS: BP 125/75
[2025-11-07 11:40] VITALS: BP 102/71
[2025-11-07] MEDS ORDERED: Flomax0.4 MG PO (12:04)
[2025-11-07] MEDS ORDERED: JARDIANCE10 MG PO (12:05)
== END 2025-11-07 12:44 | disposition home or self-care (01) | DRG 300 ==
LOC: ER 13:25 → ERHOLD 13:26 → MEDS 13:26
PROVIDERS: Family Medicine; Student in an Organized Health Care Education/Training Program; ADMIT Internal Medicine
DX: I73.9 Peripheral vascular disease, unspecified (principal); I48.92 Unspecified atrial flutter; I50.22 Chronic systolic (congestive) heart failure; N39.0 Urinary tract infection, site not specified; I11.0 Hypertensive heart disease with heart failure; Z66 Do not resuscitate; E11.9 Type 2 diabetes mellitus without complications; E78.5 Hyperlipidemia, unspecified; I48.91 Unspecified atrial fibrillation; N40.0 Benign prostatic hyperplasia without lower urinary tract symptoms; N40.1 Benign prostatic hyperplasia with lower urinary tract symptoms; R33.8 Other retention of urine; K59.09 Other constipation; G89.29 Other chronic pain; M19.90 Unspecified osteoarthritis, unspecified site; B96.20 Unspecified Escherichia coli [E. coli] as the cause of diseases classified elsewhere; Z79.01 Long term (current) use of anticoagulants; Z79.84 Long term (current) use of oral hypoglycemic drugs; Z79.899 Other long term (current) drug therapy; Z96.653 Presence of artificial knee joint, bilateral; Z83.3 Family history of diabetes mellitus
CPT/HCPCS: 36415; 74177; 80048; 80053; 81001; 83690; 84484; 85025; 85027; 87086; 93930; 96365-59; 96375; 96375-59; 96376; 96376-59; 97116; 97162; 97165; 97530; 99285-25; A9270; G0378; J0696; J1885; J2270; J7030; J7040; Q9967